=== PATIENT | male | born 2000 | race Caucasian/White ===

== ENCOUNTER 2021-08-04 13:50 | Emergency (ER) | payer OTHER ==
[2021-08-04 14:52] VITALS: BP 130/86; TEMP 98.2
[2021-08-04] MEDS ORDERED: ONDANSETRON 4 MG/2 ML VIAL IVP STA (15:13)
[2021-08-04] MEDS ORDERED: KETOROLAC 15 MG/ML 1 ML VIAL IVP STA (15:13)
[2021-08-04] MEDS ORDERED: SODIUM CHLORIDE 0.9% 1,000 ML IV STA (15:13)
[2021-08-04] MEDS ORDERED: diphenhydrAMINE 50 MG/ML 1 ML VIAL IVP STA (15:13)
--- NOTE | 2021-08-04 15:20 | ED ---
General Adult HPI - General Chief complaint: Headache Stated complaint: Headache Time Seen by Provider: 08/04/21 14:48 Source: patient Mode of arrival: EMS - History of Present Illness Initial comments: Dictation was produced using [employer] dictation software. please excuse any grammatical, word or spelling errors. Chief Complaint: 21-year-old male presents with headache since 10:30 History of Present Illness: 21-year-old male he was fussing at work when all of a sudden at 10:30 AM he began experiencing a left-sided headache. Patient states that he has headaches similar to this however not as severe. He was said this is probably one of the worst headaches he's had. He does report an insidious onset. Denies any numbness and paresthesias to the arms or legs. No difficulty ambulating. Patient was not able to work decided come to the emergency department. Denies any nausea or vomiting. No visual loss. The ROS documented in this emergency department record has been reviewed and confirmed by me. Those systems with pertinent positive or negative responses have been documented in the HPI. All other systems are other negative and/or noncontributory. PHYSICAL EXAM: General Impression: Alert and oriented x3, not in acute distress HEENT: Normocephalic atraumatic, extra-ocular movements intact, pupils equal and reactive to light bilaterally, mucous membranes moist. Cardiovascular: Heart regular rate and rhythm Chest: Able to complete full sentences, no retractions, no tachypnea Abdomen: abdomen soft, non-tender, non-distended, no organomegaly Musculoskeletal: Pulses present and equal in all extremities, no peripheral edema Motor: no focal deficits noted Neurological: CN II-XII grossly intact, no focal motor or sensory deficits noted Skin: Intact with no visualized rashes Psych: Normal affect and mood ED course: 21-year-old benign appearing male presents emergency department for acute severe headache starting at 10:30 AM. Neuro Logic examination is benign. Vital signs upon arrival are within acceptable limits. Patient's well-appearing at bedside. Computed tomography scan of brain is unremarkable. Patient's well-appearing at bedside and had a CT at 6 hours since the time of onset negative for any mass or intracranial bleed or any other acute process. Clinical presentation likely secondary to acute migraine headache. Patient given headache cocktail. Patient received headache cocktail feeling improved. Patient is agreeable at discharge. Is told to increase fluid intake and take [id number] an algesics for recurrence of headache. Otherwise advised to follow-up with primary care doctor. - Related Data Home Medications Medication Instructions Recorded Confirmed Acne Medicine 1 applic TOPICAL BID 12/06/14 12/06/14 Allergies Allergy/AdvReac Type Severity Reaction Status Date / Time No Known Allergies Allergy Verified 12/06/14 10:21 Review of Systems ROS Statement: Those systems with pertinent positive or pertinent negative responses have been documented in the HPI. ROS Other: All systems not noted in ROS Statement are negative. Past Medical History Past Medical History: No Reported History History of Any Multi-Drug Resistant Organisms: None Reported Past Surgical History: Tonsillectomy Past Psychological History: No Psychological Hx Reported Smoking Status: Never smoker Past Alcohol Use History: Rare Past Drug Use History: Marijuana Course Vital Signs 08/04/21 14:35 Temperature 98.2 F Pulse Rate 106 H Respiratory 18 Rate Blood Pressure 130/86 O2 Sat by Pulse 100 Oximetry Disposition Clinical Impression: Acute headache Disposition: HOME SELF-CARE Condition: Good Instructions (If sedation given, give patient instructions): Acute Headache (ED) Is patient prescribed a controlled substance at d/c from ED?: No Referrals: Jackie Clark MD [REFERRING] - 1-2 days
--- NOTE | 2021-08-04 15:35 | CT ---
EXAMINATION TYPE: CT brain wo con DATE OF EXAM: 08/04/2021 COMPARISON: CT brain 09/21/2013 HISTORY: Headache CT DLP: 1071.4 mGycm. Automated Exposure Control for Dose Reduction was Utilized. TECHNIQUE: CT scan of the head is performed without contrast. FINDINGS: There is no acute intracranial hemorrhage, mass effect, or midline shift identified. The ventricles and sulci are within normal limits in size. The globes are intact and the visualized sin uses are clear. IMPRESSION: No acute intracranial hemorrhage, mass effect, or midline shift is seen.
[2021-08-04 16:20] VITALS: PULSE 104; RESP 16
== END 2021-08-04 16:15 | disposition home or self-care (01) ==
LOC: EC 13:50
DX: R51.9 Headache, unspecified (principal); F12.90 Cannabis use, unspecified, uncomplicated; Z90.89 Acquired absence of other organs
CPT/HCPCS: 99284; 96374; 96375 ×2; 96361; 70450; J1200; J2405; J1885

== ENCOUNTER 2023-04-06 11:12 | Emergency (ER) | payer OTHER ==
[2023-04-06 12:03] VITALS: RESP 20
[2023-04-06] MEDS ORDERED: ORPHENADRINE 30 MG/ML 2 ML VIAL IM STA (12:32)
[2023-04-06] MEDS ORDERED: LIDOCAINE 5% PATCH TOPICAL STA (12:32)
[2023-04-06] MEDS ORDERED: ACETAMINOPHEN TAB 325 MG TAB PO STA (12:33)
--- NOTE | 2023-04-06 12:34 | ED ---
General Adult HPI - General Chief complaint: Back Pain/Injury Stated complaint: back pain Time Seen by Provider: 04/06/23 12:16 Source: patient, RN notes reviewed Mode of arrival: ambulatory Limitations: no limitations - History of Present Illness Initial comments: 23-year-old male presents to the emergency department chief complaint of low back pain. He states that it is across his entire lower back it is worse with bending down and movement. 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 He states that this aggravates his back pain. He was seen at urgent care on Tuesday and was given a steroid shot. He states that the steroid shot helped for the time being but he is having the pain again. He reports taking motrin earlier today. He states that he has been wearing his grandfather's back brace and it helps with the pain. Patient denies any significant medical history. Denies known ALLERGIES. Denies fever, chills. Denies numbness in the groin. Denies urinary retention, loss of bowel or bladder function. - Related Data Home Medications Medication Instructions Recorded Confirmed Acne Medicine 1 applic TOPICAL BID 12/06/14 12/06/14 Previous Rx's Medication Instructions Recorded Cyclobenzaprine [Flexeril] 5 mg PO TID PRN #15 tablet 04/06/23 Lidocaine 5% Patch [Lidoderm 5% 1 patch TOPICAL DAILY #5 patch 04/06/23 Patch] Allergies Allergy/AdvReac Type Severity Reaction Status Date / Time No Known Allergies Allergy Verified 04/06/23 12:03 Review of Systems ROS Statement: Those systems with pertinent positive or pertinent negative responses have been documented in the HPI. ROS Other: All systems not noted in ROS Statement are negative. Past Medical History Past Medical History: No Reported History History of Any Multi-Drug Resistant Organisms: None Reported Past Surgical History: Tonsillectomy Past Psychological History: No Psychological Hx Reported Smoking Status: Never smoker Past Alcohol Use History: None Reported Past Drug Use History: Marijuana General Exam Limitations: no limitations General appearance: alert, in no apparent distress Head exam: Present: atraumatic, normocephalic, normal inspection Eye exam: Present: normal appearance, PERRL, EOMI. Absent: scleral icterus, conjunctival injection, periorbital swelling ENT exam: Present: normal exam, mucous membranes moist Neck exam: Present: normal inspection, full ROM. Absent: tenderness, meningi smus, lymphadenopathy Respiratory exam: Present: normal lung sounds bilaterally. Absent: respiratory distress, wheezes, rales, rhonchi, stridor Cardiovascular Exam: Present: regular rate, normal rhythm, normal heart sounds. Absent: systolic murmur, diastolic murmur, rubs, gallop, clicks GI/Abdominal exam: Present: soft, normal bowel sounds. Absent: distended, tenderness, guarding, rebound, rigid Extremities exam: Present: normal inspection, full ROM, normal capillary refill. Absent: tenderness, pedal edema, joint swelling, calf tenderness Back exam: Present: normal inspection, full ROM, paraspinal tenderness (mild). Absent: CVA tenderness (R), CVA tenderness (L) Neurological exam: Present: alert, oriented X3 Psychiatric exam: Present: normal affect, normal mood Skin exam: Present: warm, dry, intact, normal color. Absent: rash Course Vital Signs 04/06/23 04/06/23 12:01 14:52 Temperature 98.2 F 98.0 F Pulse Rate 95 90 Respiratory 20 20 Rate Blood Pressure 130/84 127/78 O2 Sat by Pulse 20 L 97 Oximetry Medical Decision Making - Medical Decision Making Was pt. sent in by a medical professional or institution (, [facility], CONSULTING MANAGER, urgent care, hospital, or senior living...) When possible be specific @ -No Did you speak to anyone other than the patient for history (EMS, parent, family, police, friend...)? What history was obtained from this source @ -No Did you review nursing and triage notes (agree or disagree)? Why? @ -I reviewed and agree with nursing and triage notes Were old charts reviewed (outside hosp., previous admission, EMS record, old EKG, old radiological studies, urgent care reports/EKG's, senior living records)? Report findings @ -No old charts were reviewed Differential Diagnosis (chest pain, altered mental status, abdominal pain women, abdominal pain men, vaginal bleeding, weakness, fever, dyspnea, syncope, headache, dizziness, GI bleed, back pain, seizure, CVA, palpatations, mental health, musculoskeletal)? @ -Differential Musculoskeletal Muscular strain, contusion, ligament sprain, fracture, arthritis, septic arthritis, bursitis, cellulitis, muscle spasm, nerve compression, DVT, arterial occlusion, herpes zoster, electrolyte abnormality, tumor.... This is not meant to be in all inclusive list EKG interpreted by me (3pts min.). @ -None X-rays interpreted by me (1pt min.). @ -xr lumbar spine interpreted by me showed no acute fracture or dislocation, normal disc spaces CT interpreted by me (1pt min.). @ -None done U/S interpreted by me (1pt. min.). @ -None done What testing was considered but not performed or refused? (CT, X-rays, U/S, labs)? Why? @ -None What meds were considered but not given or refused? Why? @ -None Did you discuss the management of the patient with other professionals (professionals i.e. DrNicolette, PA, CONSULTING MANAGER, lab, RT, psych nurse, dialysis social worker, stone rigger, teacher, optics technical officer, immigration case worker)? Give summary @ -No Was smoking cessation discussed for >3mins.? @ -No Was critical care preformed (if so, how long)? @ -No Were there social determinants of health that impacted care today? How? (Homelessness, low income, unemployed, alcoholism, drug addiction, transportation, low edu. Level, literacy, decrease access to med. care, long term, rehab)? @ -No Was there de-escalation of care discussed even if they declined (Discuss DNR or withdrawal of care, Hospice)? DNR status @ -No What co-morbidities impacted this encounter? (DM, HTN, Smoking, COPD, CAD, Cancer, CVA, ARF, Chemo, Hep., AIDS, mental health diagnosis, sleep apnea, morbid obesity)? @ -None Was patient admitted / discharged? Hospital course, mention meds given and route, prescriptions, significant lab abnormalities, going to OR and other pertinent info. @ -Discharged. Patient presented to emergency department with chief complaint of low back pain. Patient states that it is worse with bending over and lifting items. Denies red flag symptoms. Patient was given Norflex, lidocaine and Tylenol in the emergency department which significantly improved his symptoms. X-ray of the lumbar spine was obtained which show no acute fracture. Prescription sent for Flexeril 3 days, patient advised not to operate heavy machinery or drive a car. Patient was given a note for work for today. Patient advised follow-up with his primary care provider, return precautions including loss of bowel or bladder function, saddle anesthesia, urinary retention. Case discussed with my attending, Dr. Spear Undiagnosed new problem with uncertain prognosis? @ -No Drug Therapy requiring intensive monitoring for toxicity (Heparin, Nitro, Insulin, Cardizem)? @ -No Were any procedures done? @ -No Diagnosis/symptom? @ -mechanical back pain Acute, or Chronic, or Acute on Chronic? @ -acute Uncomplicated (without systemic symptoms) or Complicated (systemic symptoms)? @ -uncomplicated Side effects of treatment? @ -No Exacerbation, Progression, or Severe Exacerbation? @ -No Poses a threat to life or bodily function? How? (Chest pain, [place], [place], pneumonia, PE, COPD, DKA, ARF, appy, cholecystitis, CVA, Diverticulitis, Homicidal, Suicidal, threat to staff... and all critical care pts) @ -No Disposition Clinical Impression: Mechanical back pain Disposition: HOME SELF-CARE Condition: Stable Instructions (If sedation given, give patient instructions): Acute Low Back Pain (ED) Additional Instructions: Please alternate Tylenol and Motrin as needed for pain. Do not operate heavy machinery or drive a car while taking Flexeril. If you develop any new or worsening symptoms including loss of bowel or bladder function, numbness in the groin, please return to the emergency department immediately. Please return to the Emergency Department if symptoms worsen or any other concerns. Please follow up with her primary care physician in 1 to 2 days. Prescriptions: Cyclobenzaprine [Flexeril] 5 mg PO TID PRN #15 tablet PRN Reason: Muscle Spasm Lidocaine 5% Patch [Lidoderm 5% Patch] 1 patch TOPICAL DAILY #5 patch Is patient prescribed a controlled substance at d/c from ED?: No Referrals: None,Stated [Primary Care Provider] - 1-2 days Time of Disposition: 14:14
--- NOTE | 2023-04-06 12:52 | XR ---
EXAMINATION TYPE: XR lumbar spine 2 or 3V DATE OF EXAM: 04/06/2023 CLINICAL HISTORY: Back pain TECHNIQUE: Three views of the lumbar spine are submitted. COMPARISON: None. FINDINGS: There are 5 lumbar type vertebral bodies identified. The lumbar spine shows satisfactory alignment w ithout evidence of acute fracture or dislocation. Vertebral body heights are within normal limits. Disc spaces are within normal limits. The overlying soft tissue appears unremarkable. No unusual tray cifications. IMPRESSION: No acute fracture or dislocation is seen in the lumbar spine.
[2023-04-06 14:53] VITALS: BP 127/78; PULSE 90; TEMP 98
== END 2023-04-06 14:52 | disposition home or self-care (01) ==
LOC: EC 11:12
DX: M54.50 Low back pain, unspecified (principal); F12.90 Cannabis use, unspecified, uncomplicated
CPT/HCPCS: 72100; 99283; 96372; J2360